=== PATIENT | female | born 1950 | race Caucasian/White ===

== ENCOUNTER 2016-09-03 08:02 | Day surgery (SDC) | payer MEDICARE, BC ==
[~2016-09-03] VITALS: Ht 157.5 cm; Wt 79.7 kg
--- NOTE | 2016-09-04 11:53 | OR ---
ADMIT: 09/03/2016 RM/LOC: [facility] MR#: [id number] [address] [address] DOMITILA ZUNIGA [address] [place] [address] Operative/Delivery Room Report SEX: F AGE: 66 : 1950 SURGERY DATE: 09/03/2016 SURGEON: Pedro Bello MD PREOPERATIVE DIAGNOSES: 1. Right shoulder impingement with high-grade partial thickness rotator cuff tear with possible small area of full-thickness tearing here. 2. acromioclavicular joint degeneration. POSTOPERATIVE DIAGNOSES: 1. Right shoulder, high-grade articular surface partial thickness rotator cuff tear, approximately 90% thickness of the tendon. 2. Right shoulder acromioclavicular joint arthrosis. 3. Right shoulder biceps tendinitis and degeneration. 4. Right shoulder partial subscapularis tearing. 5. Right shoulder moderate glenohumeral degenerative changes. PROCEDURES: 1. Right shoulder arthroscopy with extensive debridement of the glenohumeral joint including some chondroplasty, debridement of the biceps tendon as well as biceps tenotomy, labral debridement and debridement of the subscapularis as well as undersurface rotator cuff tearing. 2. Right shoulder arthroscopy with arthroscopic subacromial decompression. 3. Right shoulder open rotator cuff repair of a high-grade, approximately 90% partial thickness rotator cuff tear that was about a cm in length. 4. Right shoulder open distal clavicle excision. HORSESHOER: FLORIDALMA Vargas. ESTIMATED BLOOD LOSS: 30 mL. ANESTHESIA: General. COMPLICATIONS: None. CONDITION: Stable to recovery room. INDICATIONS: The patient is a 66-year-old female, who has had previous cervical spine surgery has been having shoulder pain for several months now. A couple years after her cervical spine surgery, she was seen by the neurosurgeon and felt this was probably not coming from her neck. We then worked up her shoulder. She had an MRI scan showing AC joint degenerative changes as well as high-grade undersurface partial-thickness tearing of the rotator cuff, possible full-thickness tearing here. We treated this conservatively with pain medications, physical therapy, and injection. These did not resolve her symptoms. At this time, we have talked to her about further surgical intervention and treatment here. We talked to her about shoulder arthroscopy evaluating the rotator cuff, possible rotator ADMIT: 09/03/2016 RM/LOC: [facility] MR#: [id number] [address] [address] DOMITILA ZUNIGA [address] [place] [address] Operative/Delivery Room Report SEX: F AGE: 66 : 1950 cuff repair, distal clavicle excision. She and her did want to go ahead and proceed with this. The procedure as well as the risks and benefits were discussed with the patient and her at length, questions were answered, and they agreed to proceed at this point. DESCRIPTION OF PROCEDURE: After informed consent was obtained, the patient taken to the operating room, placed on the operative table in supine position. General anesthetic was administered. After adequate general anesthesia, the patient was placed in a modified beach chair position. Once this was completed, the right shoulder was then prepped and draped in usual sterile fashion. We marked our landmarks to include the distal clavicle, acromion, scapular spine and coracoid process. I then injected the subacromial space with 30 mL 0.5% Marcaine with epinephrine. We then made our posterior portal using 11 blade. At this point, found that we did not have an arthroscopic cannula, we had to wait for this. Once we got the arthroscopic cannula, placed the cannula with blunt trocar into the posterior portal into the glenohumeral joint. Once this was completed, the 30 degree 4.0 arthroscope was placed into the cannula and the systemic examination of the shoulder was begun. The patient did have some degeneration of superior labrum into the biceps tendon here as well as some degeneration fraying of the subscapularis tendon and some moderate degenerative changes with some chondromalacia noted of the glenohumeral joint, particularly the humeral head. The undersurface of the rotator cuff was also evaluated, felt to be a fairly high-grade partial- thickness tearing with significant fraying here. We then placed a spinal needle under direct arthroscopic visualization for anterior portal. Once this was in good position, we created our anterior portal. Sucker shaver was then placed. At this point, we debrided the superior labral tissue as well as did some chondroplasty of the humeral head. We then debrided some of the biceps tendon and after debriding this, there was probably at least 50% or more degenerative here. We elected to then perform a biceps tenotomy using the sucker shaver. Once this was completed, the subscapularis was debrided of some partial-thickness tearing here. The undersurface of the rotator cuff was identified. The sucker shaver was used to debride this area and had almost near full-thickness area of tearing supraspinatus, maybe the posterior portion of supraspinatus here. Once this was completed and everything was cleaned up, we did a biceps tenotomy. The scope was removed from the glenohumeral joint, placed the posterior portal into the subacromial space. Spinal needle was placed laterally. Once this was noted to be in good position, created the lateral portal. Sucker shaver was then placed debriding the bursal tissue as well as soft tissue off the undersurface of the acromion. We then used a tissue ablator to debride additional tissue off the undersurface of the acromion and release coracoacromial ligament. Once this was completed, we used a bur to perform a subacromial decompression and acromioplasty. Once we had a very nice acromioplasty, we identified the bursal surface of the rotator cuff and evaluated this. I really did not see any obvious tearing from the bursal surface here. We then replaced the scope into the posterior portal into the glenohumeral joint. We placed a spinal needle to jaclyn the area of the high-grade partial thickness tearing on the articular surface here. Once ADMIT: 09/03/2016 RM/LOC: [facility] MR#: [id number] [address] [address] DOMITILA ZUNIGA Claudia [address] [place] [address] Operative/Delivery Room Report SEX: F AGE: 66 : 1950 this was completed, the scope and instruments were removed. We made an incision in line with the previous lateral portal through the skin and subcutaneous tissues. Hemostasis maintained using Bovie electrocautery. We then split the fibers of the deltoid, placed a deltoid retractor. I identified where the needle entered the rotator cuff on the bursal surface. Once again, just on visualization, this actually looked pretty good. We removed the needle and placed just a little bit posteriorly and anteriorly to this area and the cuff was extremely thin here. It appeared to be just a couple mm thick if that. We then ellipsed this area out with a 15 blade and indeed this was quite very thin. We took this down about a cm. Once this was completely freshened, the edges of the rotator cuff as well as using a rongeur to get a bleeding bony bed at the rotator cuff attachment on the greater tuberosity. Adjacent to the articular cartilage, once we got a good bleeding bony bed, we copiously irrigated the wounds. We then placed 2 #2 Orthocord sutures through bony tunnels. The free ends were then passed to the free edge of the tendon using a modified Slick-Emory stitch. These were tied down sequentially. We then placed an additional #1 Vicryl sutures at the cuff edge to smooth things down here. Once this was completed, this was copiously irrigated. The finger was placed in the wound, there was excellent subacromial decompression acromioplasty here. We then extended the incision medially for a couple cm and identified the distal clavicle. We made an incision directly over the distal clavicle using Bovie electrocautery, splitting the deltotrapezial fascia anteriorly and posteriorly off the distal clavicle. 2 small metacarpal retractors then placed. We measured and removed 1 cm of the distal clavicle using a small oscillating saw. The distal clavicle was then removed. We copiously irrigated the wound. Hemostasis once again maintained using Bovie electrocautery. Reapproximated the deltotrapezial fascia using 0 Vicryl in a [id number] fashion. The wounds once again copiously irrigated. The split in the deltoid was then reapproximated using 0 Vicryl in a ipvbyy-bh-gisoy fashion. Subcutaneous tissue was then closed using 2-0 Vicryl in simple interrupted fashion. Skin was closed using skin deidre. A sterile compressive dressing was then applied consisting of Xeroform, plain gauze, ABDs, Medipore tape. Right upper extremity placed into a shoulder immobilizer. She is going to get a supraclavicular block from Anesthesia in the recovery area. Gave a referral to start therapy in 2-3 days. Pedro Bello MD/ marilu JOB #: [id number] CC: Pedro Bello MD, Attending Physician Emelina Kang MD, Family Physician
--- NOTE | 2016-09-21 09:25 | HP ---
ADMIT: 09/03/2016 RM/LOC: [facility] MR#: [id number] [address] [address] DOMITILA ZUNIGA [address] [place] [address] Pre-OP History and Physical SEX: F AGE: 66 : 1950 DATE OF SERVICE: CHIEF COMPLAINT: Right shoulder pain. HISTORY OF PRESENT ILLNESS: The patient is a 66-year-old female, who about 3.5 or 4 years ago had cervical spine surgery done by Dr. Vann. She had diskectomy and cervical fusion. She still gets some symptoms from this. Her shoulder has been hurting her for about two or three months when we saw her last fall. No injury or trauma here. She said that she did fall in the beginning of summer, but did not really have any shoulder pain at that time. We treated her conservatively for a period of time with physical therapy, anti- inflammatory medications, as well as an injection. The injection did give her some short-term relief. We then obtained an MRI scan, which did show moderate supraspinatus tendinopathy with focal high-grade undersurface partial tearing, possible small area of full thickness tearing, some moderate fluid in the subacromial subdeltoid bursa, as well as some AC joint arthrosis. Back in March, we actually offered her arthroscopic surgery for the shoulder and her cancelled this. She has been continuing to have shoulder pain which continues to worsen here. At this time, she would like to proceed with a right shoulder arthroscopy, subacromial decompression. We will evaluate the rotator cuff with this clavicle excision possible rotator cuff repair. PAST MEDICAL HISTORY: Significant for: 1. Sleep apnea. 2. Fibromyalgia. 3. Irregular heart beat. 4. Migraine headaches. 5. Osteoporosis. 6. Depression. CURRENT MEDICATIONS: 1. Topamax. 2. Xopenex. 3. Bystolic. 4. Hydrocodone. 5. Omeprazole. 6. Alprazolam. 7. Imitrex. 8. Lipitor. 9. Cymbalta. ALLERGIES: NO KNOWN DRUG ALLERGIES. SOCIAL HISTORY: The patient is a former smoker. Does not smoke any longer. No significant alcohol use. REVIEW OF SYSTEMS: Noncontributory. Exception of some memory loss here. PHYSICAL EXAMINATION: HEENT: Appear to be benign. We will make sure ADMIT: 09/03/2016 RM/LOC: [facility] MR#: [id number] [address] [address] DOMITILA ZUNIGA [address] [place] [address] Pre-OP History and Physical SEX: F AGE: 66 : 1950 Anesthesia evaluates her for this preoperatively. HEART: Appear to be benign. We will make sure Anesthesia evaluates her for this preoperatively. LUNGS: Appear to be benign. We will make sure Anesthesia evaluates her for this preoperatively. ABDOMEN: Appear to be benign. We will make sure Anesthesia evaluates her for this preoperatively. EXTREMITIES: Examination of the right shoulder, it is quite tender over the AC joint as well as in the anterior subacromial region. Pretty good active range of motion. Pain beginning about 90 degrees of forward elevation, abduction. She has this pain with Neer and Shepard impingement sign. Rotator cuff muscle testing is about 4/5, just mild weakness noted here. No gross shoulder instability. Appears to be otherwise distally neurovascularly intact. ASSESSMENT: Right shoulder continued pain with at least a partial thickness rotator cuff tear, possible small full-thickness tear, AC joint arthrosis. PLAN: At this point, since nothing else has really helped, we did offer her shoulder arthroscopy subacromial decompression, distal clavicle excision, and possible rotator cuff repair. I had a long discussion with the patient as well as her in the office. They do wish to proceed at this time. We discussed the procedure as well as risks and benefits at length. Including but not limited to, infection, damage to neurovascular structures, bleeding, possible continued pain in the shoulder, and told her that some of her symptoms may be still due to her cervical spine surgery. They do understand and agree with all this. I will plan on doing a right shoulder arthroscopy, as above at the hospital on Saturday, 09/03. Pedro Bello MD/ marilu JOB #: [id number] CC: Pedro Bello MD, Attending Physician UNKNOWN, Family Physician
== END 2016-09-03 17:38 | disposition home or self-care (01) ==
LOC: SSS 08:02
PROC: 0RNJ4ZZ Release Right Shoulder Joint, Percutaneous Endoscopic Approach (ICD-10-PCS; principal; 2016-09-03)
PROC: 0PB90ZZ Excision of Right Clavicle, Open Approach (ICD-10-PCS; principal; 2016-09-03)
PROC: 0LQ10ZZ Repair Right Shoulder Tendon, Open Approach (ICD-10-PCS; principal; 2016-09-03)
PROC: 0RBJ4ZZ Excision of Right Shoulder Joint, Percutaneous Endoscopic Approach (ICD-10-PCS; principal; 2016-09-03)
DX: M75.101 Unspecified rotator cuff tear or rupture of right shoulder, not specified as traumatic (principal); M25.811 Other specified joint disorders, right shoulder; M13.811 Other specified arthritis, right shoulder; M75.21 Bicipital tendinitis, right shoulder; I25.2 Old myocardial infarction; I10 Essential (primary) hypertension; G47.30 Sleep apnea, unspecified; M79.7 Fibromyalgia; Z90.49 Acquired absence of other specified parts of digestive tract; Z98.890 Other specified postprocedural states; Z90.710 Acquired absence of both cervix and uterus; Z79.899 Other long term (current) drug therapy; Z88.0 Allergy status to penicillin; Z88.1 Allergy status to other antibiotic agents; Z88.8 Allergy status to other drugs, medicaments and biological substances

== ENCOUNTER 2016-09-06 16:30 | Emergency (ER) | payer MEDICARE, BC ==
--- NOTE | 2016-09-12 15:34 | ER ---
ADMIT: 09/06/2016 RM/LOC: [facility] MR#: [id number] [facility] [address] DOMITILA ZUNIGA [facility] [place] [address] Emergency Room Report SEX: F AGE: 66 : 1950 DATE: 09/06/2016 ADDENDUM: This is a 66-year-old, white female with a degree of dementia coming in with kind of nonspecific chest pain. EKG, chest x-ray, CBC, and chemistries are all negative. I did speak with Dr. Kang. We are able to let her go home at this time. She should follow up as needed. CONDITION ON DISCHARGE: Good. Crescencio Bone MD/ marilu JOB #: [id number] CC: Crescencio Bone MD, Attending Physician Emelina Kang MD, Family Physician
== END 2016-09-06 18:45 | disposition home or self-care (01) ==
LOC: ER 16:30
DX: K21.0 Gastro-esophageal reflux disease with esophagitis (principal); I10 Essential (primary) hypertension; Z98.890 Other specified postprocedural states; Z88.0 Allergy status to penicillin; Z88.1 Allergy status to other antibiotic agents; Z90.710 Acquired absence of both cervix and uterus